=== PATIENT | female | born 1985 | race American Indian/Alaskan Native ===

== ENCOUNTER 2017-08-28 20:30 | Emergency (ER) | payer MEDICAID ==
[2017-08-28 21:09] LABS: Basophils % (Auto) 0.2 % (0.0-1.8); Eosinophils # (Auto) 0.2 K/mm3 (0.0-0.4); Eosinophils % (Auto) 1.5 % (0.0-4.3); Hematocrit 36.7 % (30.3-42.9); Hemoglobin 12.2 gm/dl (10.1-14.3); Lymphocytes # (Auto) 2.9 K/mm3 (1.2-5.4); Lymphocytes % (Auto) 23.7 % (13.4-35.0); Mean Corpuscular HGB Conc 33 % (30-34); Mean Corpuscular Hemoglobin 28 pg (28-32); Mean Corpuscular Volume 85 fl (79-97); Monocytes # (Auto) 0.7 K/mm3 (0.0-0.8); Platelet Count 143 K/mm3 (140-440); Red Cell Distribution Width 14.6 % (13.2-15.2)
[2017-08-28 21:27] LABS: Alanine Aminotransferase 7 units/L (7-56); Albumin 3.3 g/dL (3.9-5); BUN/Creatinine Ratio 18; Blood Urea Nitrogen 9 mg/dL (7-17); Calcium 8.8 mg/dL (8.4-10.2); Hemolysis Index 13; Lipase 147 units/L (13-60)
[2017-08-28 21:39] LABS: Bacteria,Urine 1+ /HPF (Negative); Bilirubin,Urine NEG (Negative); Blood,Urine NEG (Negative); Color,Urine Yellow (Yellow); Mucus,Urine FEW /HPF; Protein,Urine <15 mg/dL mg/dL (Negative); Urobilinogen,Urine < 2.0 mg/dL (<2.0)
--- NOTE | 2017-08-28 22:21 | Emergency Department Report ---
HPI - General Chief Complaint: Abdominal Pain Time Seen by Provider: 08/28/17 22:10 - HPI HPI: Room 24 The patient is 32-year-old female presenting with a chief complaint of abdominal pain. The patient states she is with her last missed cycle occurring in March 2018. Patient states she was not planning on keeping the and has not received care. The patient states for the past 2 weeks she's had diffuse intermittent abdominal pain described as cramping, sharp, dull and pressure like in nature. The patient was to nausea but denies vomiting. Patient denies vaginal bleeding. Patient denies any history of fever. Patient states she's never felt the baby move. Location: Abdomen Duration: Intermittent 2 weeks Quality: [See above] Severity: Moderate Modifying factors: [see above] Context: [see above] Mode of transportation: [not driving] ED Past Medical Hx - Past Medical History Previous Medical History?: No - Surgical History Past Surgical History?: No - Family History Family history: no significant - Social History Smoking Status: Current Every Day Smoker (1 pack per day) Substance Use Type: None (denies illicit drug use), Alcohol (occasional) - Medications Home Medications: Home Medications Medication Instructions Recorded Confirmed Last Taken Type Famotidine [Pepcid] 20 mg PO BID #30 tablet 08/29/17 Unknown Rx Vit Calc,Iron,Folic 1 each PO QDAY #90 tablet 08/29/17 Unknown Rx [ Vitamins] ED Review of Systems ROS: Stated complaint: ABD PAIN; 19WKS GEST BY LMP Other details as noted in HPI Constitutional: denies: fever Gastrointestinal: abdominal pain, nausea. denies: vomiting Genitourinary: denies: abnormal menses Physical Exam - Physical Exam Vital Signs: Vital Signs 08/28/17 20:50 Temperature 98.7 F Pulse Rate 72 Respiratory 18 Rate Blood Pressure 118/68 O2 Sat by Pulse 100 Oximetry Physical Exam: GENERAL: The patient is well-developed well-nourished female lying on stretcher not appearing to be in acute distress. [] HEENT: Normocephalic. Atraumatic. Extraocular motions are intact. Patient has moist mucous membranes. NECK: Supple. Trachea midline CHEST/LUNGS: Clear to auscultation. There is no respiratory distress noted. HEART/CARDIOVASCULAR: Regular. There is no tachycardia. There is no gallop rub or murmur. ABDOMEN: Abdomen is soft, with diffuse discomfort to palpation. There is no rebound or guarding. Patient has normal bowel sounds. SKIN: There is no rash. There is no edema. There is no diaphoresis. NEURO: The patient is awake, alert, and oriented. The patient is cooperative. The patient has normal speech MUSCULOSKELETAL: There is no evidence of acute injury. ED Course Vital Signs 08/28/17 20:50 Temperature 98.7 F Pulse Rate 72 Respiratory 18 Rate Blood Pressure 118/68 O2 Sat by Pulse 100 Oximetry ED Medical Decision Making - Lab Data Result diagrams: 08/28/17 20:59 08/28/17 20:59 Laboratory Tests 08/28/17 08/28/17 08/28/17 20:59 20:59 20:59 WBC 12.4 H RBC 4.30 Hgb 12.2 Hct 36.7 MCV 85 MCH 28 MCHC 33 RDW 14.6 Plt Count 143 Lymph % (Auto) 23.7 [place] % (Auto) 6.0 Eos % (Auto) 1.5 Baso % (Auto) 0.2 Lymph # 2.9 [place] # 0.7 Eos # 0.2 Baso # 0.0 Seg Neutrophils % 68.6 Seg Neutrophils # 8.5 H Sodium 138 Potassium 3.9 Chloride 103.1 Carbon Dioxide 22 Anion Gap 17 BUN 9 Creatinine 0.5 L Estimated GFR > 60 BUN/Creatinine Ratio 18 Glucose 96 Calcium 8.8 Total Bilirubin < 0.20 AST 11 ALT 7 Alkaline Phosphatase 51 Total Protein 6.1 L Albumin 3.3 L Albumin/Globulin Ratio 1.2 Lipase 147 H HCG, Quant 27223 H Urine Color Urine Turbidity Urine pH Ur Specific [place] Urine Protein Urine Glucose (UA) Urine Ketones Urine Blood Urine Nitrite Urine Bilirubin Urine Urobilinogen Ur Leukocyte Esterase Urine WBC (Auto) Urine RBC (Auto) U Epithel Cells (Auto) Urine Bacteria (Auto) Urine Mucus 08/28/17 21:09 WBC RBC Hgb Hct MCV MCH MCHC RDW Plt Count Lymph % (Auto) [place] % (Auto) Eos % (Auto) Baso % (Auto) Lymph # [place] # Eos # Baso # Seg Neutrophils % Seg Neutrophils # Sodium Potassium Chloride Carbon Dioxide Anion Gap BUN Creatinine Estimated GFR BUN/Creatinine Ratio Glucose Calcium Total Bilirubin AST ALT Alkaline Phosphatase Total Protein Albumin Albumin/Globulin Ratio Lipase HCG, Quant Urine Color Yellow Urine Turbidity Clear Urine pH 6.0 Ur Specific [place] 1.025 Urine Protein <15 mg/dl Urine Glucose (UA) Neg Urine Ketones Neg Urine Blood Neg Urine Nitrite Neg Urine Bilirubin Neg Urine Urobilinogen < 2.0 Ur Leukocyte Esterase Neg Urine WBC (Auto) 1.0 Urine RBC (Auto) 2.0 U Epithel Cells (Auto) 1.0 Urine Bacteria (Auto) 1+ Urine Mucus Few - Radiology Data Radiology results: report reviewed (pelvic ultrasound), image reviewed (pelvic ultrasound) FINAL REPORT PROCEDURE: US OB gt; = 14 WEEKS FETUS TECHNIQUE: Real-time transabdominal sonography of the uterus, placenta, amniotic fluid, adnexa, and fetus was performed with image documentation. Measurements were obtained to determine age/size. M-mode Doppler was used to document heartbeat. CPT 49710 HISTORY: abdominal pain, no movement COMPARISON: No prior studies are available for comparison. FINDINGS: ADDITIONAL GESTATION: None. GENERAL: IUP: Single living intrauterine . Position: Transverse with head to maternal right Placental position: Posterior, without previa. Amniotic fluid volume: Normal. MATERNAL: Uterus: Within normal limits. Cervical length: 5.5 cm. Internal Os: Closed. FETUS: Heart rate and rhythm: 150 beats per minute MEASUREMENTS: BPD: 4.0 centimeters corresponding to 18 weeks and 1 day HC: 15.1 centimeters corresponding to 18 weeks and 1 day AC: 13.4 centimeters corresponding to 18 weeks and 6 days FL: 2.7 centimeters corresponding to 18 weeks and 1 day Mean Gestational Age (composite criteria): 18 weeks and 2 days Ratio biometry: Normal. Estimated Weight: 242 grams grams. Estimated Due Date: 01/27/2018 IMPRESSION: Single intrauterine gestation at 18 weeks and 2 days. Estimated due date: 01/27/2018. Transcribed By: [facility] – [place] Dictated By: MARYCRUZ PANG Electronically Authenticated By: MARYCRUZ PANG Signed Date/Time: 08/28/172340 DD/ 40 TD/TT: 08/28/172340 - Medical Decision Making Discussed ultrasound results with the patient and stressed the need for prompt [facility] follow-up. At the conclusion of the discussion patient requests medication for acid reflux - Differential Diagnosis demise, , UTI, threatened , molar Critical care attestation.: If time is entered above; I have spent that time in minutes in the direct care of this critically ill patient, excluding procedure time. ED Disposition Clinical Impression: Abdominal pain, Disposition: DC- TO HOME OR SELFCARE Is pt being admited?: No Does the pt Need Aspirin: No Condition: Stable Instructions: Abdominal Pain (ED) Additional Instructions: Return to the emergency department immediately should you develop worsening symptoms, fever, inability to tolerate food or liquid or any other concerns. Prescriptions: Famotidine [Pepcid] 20 mg PO BID #30 tablet Vit Calc,Iron,Folic [ Vitamins] 1 each PO QDAY #90 tablet Referrals: [facility] [Provider Group] - JOSE Time of Disposition: 00:05
--- NOTE | 2017-08-28 23:42 | Ultrasound Report ---
FINAL REPORT PROCEDURE: US OB TRANSVAGINAL TECHNIQUE: Real-time limited sonographic examination was performed for evaluation of size, position, heartbeat, fluid volume for each fetus with image documentation (1 or more fetuses). CPT 14673 HISTORY: abdominal pain, no movement COMPARISON: No prior studies are available for comparison. FINDINGS: MATERNAL Uterus: Within normal limits . Cervix length: 5.5 cm. Internal Os: Closed . FETUS IUP: Single living intrauterine . Position: Transverse with head to maternal right. Placental position: Posterior, without previa . Amniotic fluid volume: Normal . Heart rate and rhythm: 150 BPM, Regular . MEASUREMENTS BPD: 4.0 centimeters corresponding to 18 weeks 1 day. HC: 15.1 centimeters corresponding to 18 weeks 1 day. AC: 13.4 centimeters corresponding to 18 weeks 6 days. FL: 2.7 centimeters corresponding to 18 weeks 1 day. Mean Gestational Age (composite criteria): 18 weeks 2 days. Ratio biometry: Normal . Estimated Weight: 242 grams. IMPRESSION: 1. Single living intrauterine gestation at approximately 18 weeks and 2 days 2. EDC by US 01/27/2018.
--- NOTE | 2017-08-28 23:46 | Ultrasound Report ---
FINAL REPORT PROCEDURE: US OB > = 14 WEEKS FETUS TECHNIQUE: Real-time transabdominal sonography of the uterus, placenta, amniotic fluid, adnexa, and fetus was performed with image documentation. Measurements were obtained to determine age/size. M-mode Doppler was used to document heartbeat. CPT 13612 HISTORY: abdominal pain, no movement COMPARISON: No prior studies are available for comparison. FINDINGS: ADDITIONAL GESTATION: None. GENERAL: IUP: Single living intrauterine . Position: Transverse with head to maternal right Placental position: Posterior, without previa. Amniotic fluid volume: Normal. MATERNAL: Uterus: Within normal limits. Cervical length: 5.5 cm. Internal Os: Closed. FETUS: Heart rate and rhythm: 150 beats per minute MEASUREMENTS: BPD: 4.0 centimeters corresponding to 18 weeks and 1 day HC: 15.1 centimeters corresponding to 18 weeks and 1 day AC: 13.4 centimeters corresponding to 18 weeks and 6 days FL: 2.7 centimeters corresponding to 18 weeks and 1 day Mean Gestational Age (composite criteria): 18 weeks and 2 days Ratio biometry: Normal. Estimated Weight: 242 grams grams. Estimated Due Date: 01/27/2018 IMPRESSION: Single intrauterine gestation at 18 weeks and 2 days. Estimated due date: 01/27/2018.
[2017-08-28 23:59] VITALS: BP 138/66
== END 2017-08-29 00:10 | disposition home or self-care (01) ==
LOC: ED 20:30
DX: O26.892 Other specified pregnancy related conditions, second trimester (principal); R10.9 Unspecified abdominal pain; R11.0 Nausea; O99.332 Smoking (tobacco) complicating pregnancy, second trimester; Z3A.18 18 weeks gestation of pregnancy
CPT/HCPCS: 36415; 76805; 76817; 80053; 81001; 83690; 84702; 85025

== ENCOUNTER 2017-09-18 01:22 | Outpatient (CLI) | payer MEDICAID ==
[2017-09-18 01:39] VITALS: BP 123/64
[2017-09-18] MEDS ORDERED: BICITRA PO ONE (02:45)
[2017-09-18] MEDS ORDERED: TYLENOL PO ONE (02:45)
[2017-09-18] MEDS ORDERED: BICITRA ONE (02:47)
[2017-09-18] MEDS ORDERED: TYLENOL ONE (02:47)
== END 2017-09-18 02:56 | disposition home or self-care (01) ==
LOC: TRG 01:22
PROVIDERS: ATTEND Obstetrics & Gynecology
DX: O99.332 Smoking (tobacco) complicating pregnancy, second trimester (principal); F17.200 Nicotine dependence, unspecified, uncomplicated; O47.02 False labor before 37 completed weeks of gestation, second trimester; Z3A.21 21 weeks gestation of pregnancy
CPT/HCPCS: 59025

== ENCOUNTER 2017-12-24 22:41 | Outpatient (CLI) | payer MEDICAID ==
[2017-12-24 23:19] VITALS: BP 124/61
[2017-12-24] MEDS ORDERED: LACTATED RINGERS 1,000 ML IV ONE (23:22)
[2017-12-25 00:26] LABS: Bilirubin,Urine NEG (Negative); Blood,Urine SM (Negative); Color,Urine Yellow (Yellow); Mucus,Urine 3+ /HPF; Urobilinogen,Urine < 2.0 mg/dL (<2.0)
== END 2017-12-25 00:40 | disposition home or self-care (01) ==
LOC: TRG 22:41
PROVIDERS: ATTEND Obstetrics & Gynecology
DX: O47.03 False labor before 37 completed weeks of gestation, third trimester (principal); O99.333 Smoking (tobacco) complicating pregnancy, third trimester; F17.210 Nicotine dependence, cigarettes, uncomplicated; Z3A.35 35 weeks gestation of pregnancy
CPT/HCPCS: 59025; 81001; 96360; J7120

== ENCOUNTER 2018-01-08 01:35 | Outpatient (CLI) | payer MEDICAID ==
[2018-01-08] MEDS ORDERED: VISTARIL PO PRN (02:11)
[2018-01-08] MEDS ORDERED: BICITRA PO ONE (02:11)
[2018-01-08 02:16] VITALS: BP 129/60
[2018-01-08 03:51] LABS: Bacteria,Urine 2+ /HPF (Negative); Bilirubin,Urine NEG (Negative); Blood,Urine SM (Negative); Calcium Oxalate Crystals,Urine 2+; Color,Urine Yellow (Yellow); Mucus,Urine 2+ /HPF; Protein,Urine <15 mg/dL mg/dL (Negative); Urobilinogen,Urine < 2.0 mg/dL (<2.0)
[2018-01-08 04:01] LABS: Amphetamine Screen,Urine PRESUMPTIVE NEGATIVE; Benzodiazepines Screen,Urine PRESUMPTIVE NEGATIVE; Cannabinoid Screen,Urine PRESUMPTIVE NEGATIVE; Cocaine Screen,Urine PRESUMPTIVE NEGATIVE; Methadone Screen,Urine PRESUMPTIVE NEGATIVE; Opiate Screen,Urine PRESUMPTIVE NEGATIVE
== END 2018-01-08 02:49 | disposition home or self-care (01) ==
LOC: TRG 01:35
PROVIDERS: ATTEND Obstetrics & Gynecology
DX: O47.03 False labor before 37 completed weeks of gestation, third trimester (principal); O99.333 Smoking (tobacco) complicating pregnancy, third trimester; Z3A.37 37 weeks gestation of pregnancy
CPT/HCPCS: 59025; 80307; 81001; Q0177